=== PATIENT | male | born 1940 | race Caucasian/White ===

== ENCOUNTER 2020-12-23 22:52 | Emergency (ER) | payer MEDICARE, BC ==
--- NOTE | 2020-12-23 23:35 | EDM.PDOC ---
ED HPI GENERAL MEDICAL PROBLEM - General Chief Complaint: General Stated Complaint: LEFT UPPER AND LOWER SIDE PAIN Time Seen by Provider: 12/23/20 23:03 Source of Information: Reports: Patient History Limitations: Reports: No Limitations - History of Present Illness INITIAL COMMENTS - FREE TEXT/NARRATIVE: Mr. Justin is a very pleasant 80-year-old gentleman who now presents the ED complaining of left lateral rib pain that began last night, but got worse this morning. He states that it was quite mild last night, however, he knew right away this morning that it was worse. He describes the pain as "annoying" and "irritating". He states that the pain is present even if he remains perfectly still, however, is worse with inspiration. He has been taking ibuprofen 400 mg Q 4 hrs all day, with his most recent dose at 18:00, however, he states that it is not helping much. No associated dyspnea, nausea, vomiting, constipation, or diarrhea. No recent cough or fever. No recent injury to the area. No prior similar symptoms. Here in the ED, the patient's initial BP is found to be modestly elevated at 158/98, otherwise, he is hemodynamically stable, afebrile, saturating 97% on room air. He appears to be comfortable, in no acute distress. Prior to last night, the patient denies having a recent fever, chills, sore throat, ear pain, nasal or sinus congestion, cough, dyspnea, chest pain, palpitations, nausea, vomiting, constipation, diarrhea, abdominal pain, urinary symptoms, recent weight gain or weight loss, recent bloody bowel movements or black bowel movements, recent joint aches, headaches, or rashes. The patient's PCP is Moni Mcgill NP. His Test Rider is Dr. Redd Baumann. 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: NSAIDS Left Trunk Pain Score (Numeric/FACES): 5 - Related Data Allergies Allergy/AdvReac Type Severity Reaction Status Date / Time doxazosin Allergy Cannot Verified 12/23/20 23:09 Remember venom-honey bee Allergy Anaphylactic Verified 12/23/20 23:09 [bee venom (honey bee)] Shock MESYLATE Allergy Rash Uncoded 08/21/14 06:55 Home Meds: Home Meds Alogliptin Benzoate [Alogliptin] 12.5 mg PO DAILY 12/23/20 [History] Calcium Carb/D3/Mag AA Chelate [Coral Calcium Capsule] 1 cap PO DAILY 12/23/20 [History] Cetirizine [ZyrTEC] 10 mg PO DAILY 12/23/20 [History] Enalapril [Vasotec] 2.5 mg PO DAILY 12/23/20 [History] Levothyroxine 125 mcg PO DAILY 12/23/20 [History] Omeprazole 20 mg PO DAILY 12/23/20 [History] Psyllium [Metamucil] 1 cap PO DAILY 12/23/20 [History] glyBURIDE [Glyburide] 5 mg PO BID 12/23/20 [History] Past Medical History HEENT History: Reports: Allergic Rhinitis, Impaired Vision Cardiovascular History: Reports: Hypertension Gastrointestinal History: Reports: GERD Endocrine/Metabolic History: Reports: Diabetes, Type II, Hypothyroidism - Past Surgical History HEENT Surgical History: Reports: Cataract Surgery (bilateral), Detached Retina (left x 2, right x 1), Tonsillectomy Musculoskeletal Surgical History: Reports: Other (See Below) (Left biceps tendon repair) Social & Family History - Tobacco Use Tobacco Use Status *Q: Former Tobacco User Years of Tobacco use: 16 Packs/Tins Daily: 0.4 Tobacco Use Comment: Smoked from 1951 - 1967 - Alcohol Use Alcohol Use History: No - Recreational Drug Use Recreational Drug Use: No - Living Situation & Occupation Living situation: Reports: , Alone Occupation: Retired ED ROS GENERAL - Review of Systems Review Of Systems: Comprehensive ROS is negative, except as noted in HPI. ED EXAM, GENERAL - Physical Exam Exam: See Below Exam Limited By: No Limitations General Appearance: Alert, WD/WN, No Apparent Distress Eye Exam: Bilateral Eye: EOMI, Normal Inspection Ears: Normal External Exam, Hearing Grossly Normal Nose: Normal Inspection Throat/Mouth: Normal Inspection, Normal Lips, Normal Voice, No Airway Compromise Head: Atraumatic, Normocephalic Neck: Normal Inspection, Full Range of Motion Respiratory/Chest: No Respiratory Distress, Lungs Clear, Normal Breath Sounds, No Accessory Muscle Use. No: Decreased Breath Sounds, Crackles, Rhonchi, Wheezing, Stridor, Pleural Rub, Prolonged Expiration Cardiovascular: Normal Peripheral Pulses, Regular Rate, Rhythm, No Edema, No Gal lop, No JVD, No Murmur, No Rub Peripheral Pulses: 3+: Radial (L), Radial (R) GI/Abdominal: Normal Bowel Sounds, Soft, No Organomegaly, No Distention, No Abnormal Bruit, No Mass, Tender (To the LUQ, but even more tender to the left lower ribs. Skin over left ribs nontender. Nor visible abnormality to the area. No rub.) Back Exam: Normal Inspection, Full Range of Motion, NT Extremities: Normal Inspection, Normal Range of Motion, No Pedal Edema, Normal Capillary Refill Neurological: Alert, Oriented, Normal Cognition, No Motor/Sensory Deficits Psychiatric: Normal Affect Skin Exam: Warm, Dry, Intact, Normal Color, No Rash Course - Vital Signs Last Recorded V/S: Last Vital Signs Temp 36.4 C 12/23/20 23:02 Pulse 80 12/23/20 23:02 Resp 18 12/23/20 23:02 BP 158/98 H 12/23/20 23:02 Pulse Ox 97 12/23/20 23:02 - Orders/Labs/Meds Orders: Active Orders 24 hr Category Date Time Status Abdomen Pelvis w Cont [CT] Stat Exams 12/23/20 23:26 Taken Ang Chest [CT] Stat Exams 12/23/20 23:26 Taken Labs: Laboratory Tests 12/23/20 12/23/20 Range/Units 23:34 23:34 WBC 3.63 L (4.23-9.07) K/mm3 RBC 4.63 (4.63-6.08) M/mm3 Hgb 13.4 L D (13.7-17.5) gm/dl Hct 42.1 (40.1-51.0) % MCV 90.9 (79.0-92.2) fl MCH 28.9 (25.7-32.2) pg MCHC 31.8 L (32.2-35.5) g/dl RDW Std Deviation 48.5 H (35.1-43.9) fL Plt Count 169 (163-337) K/mm3 MPV 8.9 L (9.4-12.3) fl Neutrophils % (Manual) 40 (40-60) % Band Neutrophils % 0 (0-10) % Lymphocytes % (Manual) 40 (20-40) % Atypical Lymphs % 0 % Monocytes % (Manual) 16 H (2-10) % Eosinophils % (Manual) 4 (0.8-7.0) % Basophils % (Manual) 0 L (0.2-1.2) Platelet Estimate Adequate Plt Morphology Comment Normal Hypochromasia 1+ slight Anisocytosis 2+ moderate RBC Morph Comment Abnormal Sodium 145 (136-145) mEq/L Potassium 4.3 (3.5-5.1) mEq/L Chloride 109 H (98-107) mEq/L Carbon Dioxide 29 (21-32) mEq/L Anion Gap 11.3 (5-15) BUN 19 H (7-18) mg/dL Creatinine 1.2 (0.7-1.3) mg/dL Est Cr Clr Drug Dosing 53.16 mL/min Estimated GFR (MDRD) 58 (>60) mL/min BUN/Creatinine Ratio 15.8 (14-18) Glucose 128 H (70-99) mg/dL Calcium 8.2 L (8.5-10.1) mg/dL Total Bilirubin 0.3 (0.2-1.0) mg/dL AST 14 L (15-37) U/L ALT 25 (16-63) U/L Alkaline Phosphatase 62 (46-116) U/L C-Reactive Protein 0.4 (<1.0) mg/dL Total Protein 6.1 L (6.4-8.2) g/dl Albumin 3.0 L (3.4-5.0) g/dl Globulin 3.1 gm/dL Albumin/Globulin Ratio 1.0 (1-2) Meds: Medications Discontinued Medications Generic Name Dose Route Start Last Admin Trade Name Freq PRN Reason Stop Dose Admin Sodium Chloride 1,000 mls @ 150 mls/hr 12/23/20 23:45 12/23/20 23:47 Normal Saline IV 150 mls/hr ASDIRECTED [facility] Administration - Re-Assessments/Exams Free Text/Narrative Re-Assessment/Exam: 12/23/20 23:29 As above, the patient experienced minor left rib pain last night, which was worse this morning. It has not improved despite taking ibuprofen all day. The pain is present even if he remains perfectly still, but is worse with inspiration. On examination, there is no visible abnormality, the patient denies tenderness to the skin alone, but he is tender to palpation of the ribs. He is also tender to palpation of his left upper quadrant, but I cannot distinguish if that pain is due to the effect on the ribs with palpation of his abdomen; he does report that palpation of the ribs is more painful than palpation of the left upper quadrant. There is no rub to auscultation over the area. The etiology of his symptoms is not entirely clear, therefore I have ordered some blood work, a CT angiogram of the chest to rule out a pulmonary embolus to the area, as well as a CT of the abdomen and pelvis with oral and IV contrast to rule out an intra-abdominal cause. In the meantime, the patient will be given IV fluid. 12/24/20 01:05 The patient's CBC is remarkable for leukopenia of 3.63, and a Hgb slightly depressed at 13.4, but with a Hct normal at 42.1, and the remainder of his CBC being unremarkable. His CMP is remarkable for slight hyperglycemia of 128, with the remainder of his CMP being unremarkable. His CRP is within normal limits at 0.4. 12/24/20 02:47 CT angiogram of the chest is read by [facility] as "No significant acute changes appreciated. 2. No evidence of pulmonary embolus." 12/24/20 03:09 CT of the abdomen and pelvis with oral and IV contrast is read by [facility] as "Extensive diverticulosis without evidence of diverticulitis. 2. No definite acute changes identified." 12/24/20 03:13 Test results discussed with the patient. As above, today's work-up is grossly unremarkable, and does not explain the cause of his symptoms. I believe that he can be safely discharged home. I recommended that he continue to take [id number] ibuprofen as needed for discomfort, and if his pain persists, he may follow-up with his PCP. Departure - Departure Time of Disposition: 03:13 Disposition: Home, Self-Care 01 Condition: Good Clinical Impression: Rib pain on left side - Discharge Information *PRESCRIPTION DRUG MONITORING PROGRAM REVIEWED*: Not Applicable *COPY OF PRESCRIPTION DRUG MONITORING REPORT IN PATIENT RUSSELL: Not Applicable Instructions: Chest Wall Pain Referrals: Moni Mcgill NP [Primary Care Provider] - Redd Baumann MD [Physician] - Forms: ED Department Discharge Additional Instructions: You were seen in the emergency room after developing left rib pain. Work-up in the ER included several blood tests, a CT angiogram of your chest, and a CT of your abdomen and pelvis with oral and IV contrast. Your entire work-up was unremarkable, with no explanation for the cause of your pain, however, we were able to determine that you do not have a blood clot in your lungs or an infection in your abdomen. We recommend that you take [id number] ibuprofen, 3 tablets (600 mg) with food, up to every 8 hours, as needed for discomfort. If your pain persist, please follow-up with your PCP, Moni Mcgill NP. If any other problems, please do not hesitate to return to the ER. Sepsis Event Note (ED) - Evaluation Sepsis Screening Result: No Definite Risk - Focused Exam Vital Signs: Vital Signs Temp Pulse Resp BP Pulse Ox 12/23/20 23:02 36.4 C 80 18 158/98 H 97 - My Orders Last 24 Hours: My Active Orders 12/23/20 23:26 Abdomen Pelvis w Cont [CT] Stat Ang Chest [CT] Stat - Assessment/Plan Last 24 Hours: My Active Orders 12/23/20 23:26 Abdomen Pelvis w Cont [CT] Stat Ang Chest [CT] Stat
[2020-12-23] MEDS ORDERED: Sodium Chloride 0.9% 1,000 ML IV SCH (23:45)
--- NOTE | 2020-12-24 08:34 | CT ---
CT chest Technique: Multiple axial sections through the chest were obtained. Intravenous contrast was utilized. Study has been performed as a pulmonary angiogram protocol. Comparison: No prior chest CT, prior chest x-ray of 12/17/15. Findings: Pulmonary arteries are well opacified. No filling defects are seen to indicate pulmonary embolism. Thoracic aorta shows no aneurysm. Mediastinum shows no adenopathy. Mild coronary artery calcification is seen. No pericardial thickening is seen. Visualized upper abdominal structures appear similar to prior CT abdomen and pelvis exam. Lung window settings were reviewed which show slight interstitial change within the left base. Mild linear densities are noted within the right lung base. Findings most likely represent minimal fibrosis as well as right lower lobe atelectasis or scarring. Lungs otherwise are clear. Bone window settings were reviewed which show mild scattered degenerative changes within the spine. No acute osseous finding is appreciated. Impression: 1. No findings of pulmonary embolism. 2. Other findings which are chronic. No acute abnormality is appreciated. Diagnostic code #2 I agree with preliminary report from [facility], finalized on 12/24/20, 3:43 AM CDT, code 1
--- NOTE | 2020-12-24 08:38 | CT ---
CT abdomen and pelvis Technique: Multiple axial sections were obtained from above the dome of the diaphragm inferiorly through the pubic symphysis. Intravenous contrast was utilized. Oral contrast has also been given. Reconstructed coronal and sagittal images were obtained. Comparison: No prior abdominal CT is available. Findings: Air cyst is noted within the right lung base measuring 2.6 cm. Small 2.5 mm nodule is seen within the subpleural location within the right lung base which is likely incidental. Minimal atelectasis or scarring is seen within both lung bases. Liver contains no focal abnormality. Gallbladder contains no calcified gallstones. Small hiatal hernia is seen with mild to moderate gastroesophageal reflux of contrast. Spleen size is normal. Adrenal glands show no nodule. Pancreas shows no discrete abnormality. Abdominal aorta shows mild atherosclerotic calcification with no aneurysm. Atherosclerotic calcification continues into the iliac vessels. Kidneys show symmetric contrast enhancement. Cyst is noted within the left kidney measuring 5.5 cm. Delayed images show a small low density finding within the upper right kidney measuring 5 mm. This is nonspecific but most likely represents a minimal cyst. No retroperitoneal adenopathy is seen. No mesenteric abnormalities are noted. No pelvic mass or adenopathy is seen. Delayed images show contrast within the ureters and within the bladder. Numerous diverticuli are seen within the sigmoid and descending colon. No inflammatory change or diverticulitis is seen. Appendix is not visualized. Bone window settings were reviewed which show degenerative change with vacuum phenomena in two discs within the lower lumbar spine. Mild degenerative change is noted within both hips. Impression: 1. Numerous diverticuli within the descending colon and sigmoid regions with no inflammatory change of diverticulitis being seen. 2. Small hiatal hernia with gastroesophageal reflux of contrast. 3. Other nonacute findings as noted above. Diagnostic code #3 I agree with preliminary report from [facility], finalized on 12/24/20, 4:03 AM CDT, code 1
== END 2020-12-24 03:25 | disposition home or self-care (01) ==
LOC: JD.ED 22:52
DX: R07.81 Pleurodynia (principal); I10 Essential (primary) hypertension; K21.9 Gastro-esophageal reflux disease without esophagitis; E11.9 Type 2 diabetes mellitus without complications; E03.9 Hypothyroidism, unspecified; Z87.891 Personal history of nicotine dependence; Z91.030 Bee allergy status; Z88.8 Allergy status to other drugs, medicaments and biological substances; Z79.899 Other long term (current) drug therapy
CPT/HCPCS: 36415; 71275; 74177; 80053; 85007; 85027; 86140; 99284; J7030

== ENCOUNTER 2023-09-27 19:51 | Emergency (ER) | payer MEDICARE, BC | END 2023-09-27 22:12 | disposition home or self-care (01) | LOC: JD.ED 19:51 | DX: I83.811 Varicose veins of right lower extremity with pain (principal); I10 Essential (primary) hypertension; K21.9 Gastro-esophageal reflux disease without esophagitis; E11.9 Type 2 diabetes mellitus without complications; E03.9 Hypothyroidism, unspecified; Z88.8 Allergy status to other drugs, medicaments and biological substances; Z91.030 Bee allergy status; Z79.899 Other long term (current) drug therapy | CPT/HCPCS: 73590-26-RT; 73590-RT; 73610-26-RT; 73610-RT; 99283 ==

== ENCOUNTER 2024-07-09 17:35 | Emergency (ER) | payer MEDICARE, OTHER ==
[2024-07-09] MEDS: Acetaminophen 325 MG Tab PO ONE (20:04)
== END 2024-07-09 21:14 | disposition home or self-care (01) ==
LOC: JD.ED 17:35
DX: M54.50 Low back pain, unspecified (principal); I10 Essential (primary) hypertension; K21.9 Gastro-esophageal reflux disease without esophagitis; E11.9 Type 2 diabetes mellitus without complications; E03.9 Hypothyroidism, unspecified; Z79.899 Other long term (current) drug therapy; Z79.890 Hormone replacement therapy; Z91.030 Bee allergy status; Z88.8 Allergy status to other drugs, medicaments and biological substances; W01.0XXA Fall on same level from slipping, tripping and stumbling without subsequent striking against object, initial encounter; Y92.000 Kitchen of unspecified non-institutional (private) residence as the place of occurrence of the external cause
CPT/HCPCS: 72131; 72131-26; 72192; 72192-26; 99283; 99284; A9270-GY

== ENCOUNTER 2025-03-10 18:34 | Emergency (ER) | payer MEDICARE, OTHER ==
[2025-03-10] MEDS ORDERED: Sodium Chloride 0.9% 10 ML Syringe FLUSH PRN (19:25)
[2025-03-10 19:58] LABS: BASOPHILS ABSOLUTE AUTO 0.0 K/mm3 (0.0-0.2); BASOPHILS PERCENT AUTO 0.5 % (0.0-1.0); EOSINOPHILS ABSOLUTE AUTO 0.2 K/mm3 (0.0-0.4); EOSINOPHILS PERCENT AUTO 3.6 % (0.0-6.0); IMMATURE GRAN ABSOLUTE AUTO 0.02 K/mm3 (0.00-0.05); IMMATURE GRAN PERCENT AUTO 0.4 % (0.0-0.4); LYMPHOCYTES ABSOLUTE AUTO 0.7 K/mm3 (1.0-4.8); LYMPHOCYTES PERCENT AUTO 12.3 % (24.0-44.0); MEAN PLATELET VOLUME 9.0 fl (9.4-12.4); MONOCYTES ABSOLUTE AUTO 0.6 K/mm3 (0.0-0.8); MONOCYTES PERCENT AUTO 10.8 % (0.0-8.0); NEUTROPHILS ABSOLUTE AUTO 4.0 K/mm3 (1.8-7.7); NEUTROPHILS PERCENT AUTO 72.4 % (41.0-71.0); NRBC ABSOLUTE 0.00 (0.00-0.02); NRBC PERCENT 0.0 % (0.0-0.2); PLATELET COUNT,PLT 171 K/mm3 (150-400); RED BLOOD CELL COUNT 4.66 M/mm3 (4.52-5.90); WHITE BLOOD CELL COUNT,WBC 5.54 K/mm3 (3.9-11.3)
[2025-03-10 20:44] LABS: LACTIC ACID 1.0 mmol/L (0.4-2.0)
[2025-03-10 20:51] LABS: A/G RATIO 0.9 (1-2); ALANINE AMINOTRANSFERASE,ALT 23.0 U/L (16-63); ASPARTATE AMNIOTRANSFERASE,AST 16.0 U/L (15-37); BILIRUBIN TOTAL 0.3 mg/dL (0.2-1.0); BLOOD UREA NITROGEN,BUN 15.0 mg/dL (7-18); CARBON DIOXIDE,CO2 29.0 mEq/L (21-32); CHLORIDE,CL 102.0 mEq/L (98-107); CREATININE 1.3 mg/dL (0.7-1.3); EST CRCL DRUG DOSING (CG) 45.86 mL/min; ESTIMATED GFR 55.0 mL/min (>60); GLUCOSE RANDOM 224.0 mg/dL (70-99); POTASSIUM,K 4.2 mEq/L (3.5-5.1); PROTEIN TOTAL,TP 6.7 g/dl (6.4-8.2); SODIUM,NA 136.0 mEq/L (136-145); TROPONIN I HIGH SENSITIVITY 9.0 pg/mL (<=76)
== END 2025-03-11 00:40 | disposition home or self-care (01) ==
LOC: JD.ED 18:34
DX: R56.9 Unspecified convulsions (principal); I10 Essential (primary) hypertension; K21.9 Gastro-esophageal reflux disease without esophagitis; E11.9 Type 2 diabetes mellitus without complications; E03.9 Hypothyroidism, unspecified; Z91.030 Bee allergy status; Z88.8 Allergy status to other drugs, medicaments and biological substances; Z79.890 Hormone replacement therapy; Z79.899 Other long term (current) drug therapy
CPT/HCPCS: 36415; 71045; 71045-26; 80053; 83605; 83735; 83880; 84484; 85025; 93005; 93010; 99284; 99285